=== PATIENT | female | born 1970 | race Two or more races ===

== ENCOUNTER 2017-08-18 13:18 | Outpatient (CLI) | payer OTHER ==
[~2017-08-18 13:18] MED LIST: ALLEGRA ALLERG180 MG PO; AROMASIN25 MG; CATAFLAM50 MG PO; FLUCONAZOLE100 MG PO; GILTUSS TR TAB1 EACH PO; TAMOXIFEN CITRA20 MG PO; TESSALON PERLE100 MG PO; ZITHROMAX500 MG PO; [UNRECOGNIZED DRUG - OTHER] PO
== END 2017-08-18 13:23 | disposition home or self-care (01) ==
LOC: SONOGRAMA 13:18
DX: N60.11 Diffuse cystic mastopathy of right breast (principal); N60.12 Diffuse cystic mastopathy of left breast

== ENCOUNTER → 2017-09-19 | Outpatient (CLI) | payer OTHER | END | disposition home or self-care (01) | LOC: RAD 501 11:00 | DX: Z90.13 Acquired absence of bilateral breasts and nipples (principal) ==

== ENCOUNTER → 2017-09-21 13:06 | Outpatient (CLI) | payer OTHER | END | disposition home or self-care (01) | LOC: EKG 13:06 | DX: Z90.13 Acquired absence of bilateral breasts and nipples (principal) ==

== ENCOUNTER 2017-10-27 08:00 | Day surgery (SDC) | payer OTHER ==
[~2017-10-27] VITALS: Ht 157.5 cm; Wt 56.7 kg
== END 2017-10-27 13:00 | disposition home or self-care (01) ==
LOC: CIR.AMB 08:00 → SURH 10:31 → CIR.AMB 13:00
DX: Z90.11 Acquired absence of right breast and nipple (principal)

== ENCOUNTER 2018-08-30 07:58 | Outpatient (CLI) | payer OTHER | END 2018-08-30 08:30 | disposition home or self-care (01) | LOC: NUCLEAR 07:58 | DX: M13.0 Polyarthritis, unspecified (principal); Z85.3 Personal history of malignant neoplasm of breast; M81.0 Age-related osteoporosis without current pathological fracture | CPT/HCPCS: 78306; A9503; 77080 ==

== ENCOUNTER 2018-09-05 13:02 | Outpatient (CLI) | payer OTHER | END 2018-09-05 13:14 | disposition home or self-care (01) | LOC: TOM 13:02 | DX: C50.411 Malignant neoplasm of upper-outer quadrant of right female breast (principal) ==

== ENCOUNTER 2018-10-01 13:02 | Day surgery (SDC) | payer OTHER | END 2018-10-01 22:40 | disposition home or self-care (01) | LOC: CIR.AMB 13:02 | PROVIDERS: Plastic Surgery | PROC: 0HNU0ZZ Release Left Breast, Open Approach (ICD-10-PCS; 2018-10-01) | PROC: 0HWT0JZ Revision of Synthetic Substitute in Right Breast, Open Approach (ICD-10-PCS; 2018-10-01) | PROC: 0HPU0JZ Removal of Synthetic Substitute from Left Breast, Open Approach (ICD-10-PCS; principal; 2018-10-01 14:00) | PROC: 0HRU0JZ Replacement of Left Breast with Synthetic Substitute, Open Approach (ICD-10-PCS; 2018-10-01 14:00) | DX: N65.1 Disproportion of reconstructed breast (principal); Z90.13 Acquired absence of bilateral breasts and nipples | CPT/HCPCS: 19330; 19342; 19370; 19380; C1789 ==

== ENCOUNTER 2020-02-26 13:52 | Outpatient (CLI) | payer OTHER | END 2020-02-26 14:01 | disposition home or self-care (01) | LOC: RAD 13:52 | PROVIDERS: ATTEND Podiatrist Foot & Ankle Surgery | DX: M77.32 Calcaneal spur, left foot (principal); M72.2 Plantar fascial fibromatosis ==

== ENCOUNTER 2020-08-14 14:30 | Emergency (ER) | payer OTHER ==
[~2020-08-14] VITALS: Ht 165.1 cm; Wt 102.1 kg
== END 2020-08-14 20:00 | disposition home or self-care (01) ==
LOC: ER 14:30
DX: R42 Dizziness and giddiness (principal); R00.2 Palpitations; Z03.818 Encounter for observation for suspected exposure to other biological agents ruled out

== ENCOUNTER 2020-09-28 15:57 | Outpatient (CLI) | payer OTHER | END 2020-09-28 16:11 | disposition home or self-care (01) | LOC: RAD 15:57 | PROVIDERS: ATTEND Internal Medicine | DX: S63.591S Other specified sprain of right wrist, sequela (principal) ==

== ENCOUNTER 2020-11-17 13:58 | Outpatient (CLI) | payer OTHER | END 2020-11-17 14:15 | disposition home or self-care (01) | LOC: MRI 13:58 | PROVIDERS: ATTEND Internal Medicine | DX: M25.851 Other specified joint disorders, right hip (principal); M25.852 Other specified joint disorders, left hip | CPT/HCPCS: 72195 ==

== ENCOUNTER → 2020-12-14 | Outpatient (CLI) | payer OTHER | END | disposition home or self-care (01) | LOC: NUCLEAR 07:00 | PROVIDERS: ATTEND Orthopaedic Surgery | DX: M87.851 Other osteonecrosis, right femur (principal) | CPT/HCPCS: 78315; A9503 ==

== ENCOUNTER 2021-02-17 11:01 | Emergency (ER) | payer OTHER ==
[~2021-02-17] VITALS: Ht 165.1 cm; Wt 102.1 kg
[2021-02-17] MEDS ORDERED: NORFLEX100MG PO (13:50)
[2021-02-17] MEDS ORDERED: KETO10TA2 PO (13:50)
== END 2021-02-17 13:58 | disposition home or self-care (01) ==
LOC: ER 11:01
DX: M54.5 Low back pain (principal); M79.18 Myalgia, other site

== ENCOUNTER 2021-03-05 08:00 | Outpatient (CLI) | payer OTHER ==
[~2021-03-05 08:00] MED LIST changes: +KETO10TA2 PO; +NORFLEX100MG PO
== END 2021-03-05 08:30 | disposition home or self-care (01) ==
LOC: PPH VACUNA 08:00
PROVIDERS: ATTEND Emergency Medicine Pediatric Emergency Medicine
DX: Z23 Encounter for immunization (principal)